=== PATIENT | male | born 1995 | race Caucasian/White ===

== ENCOUNTER 2018-04-06 16:09 | Emergency (ER) | payer SELFPAY ==
[~2018-04-06] VITALS: Ht 177.8 cm; Wt 108.1 kg
[~2018-04-06 16:09] MED LIST: DIVALPROEX SOD250 MG PO; MOTRIN800 MG PO; TOBREX5 ML RIGHT EYE
[2018-04-06] MEDS ORDERED: CIPRODEX OTIC7.5 ML LEFT EAR (16:50)
[2018-04-06] MEDS ORDERED: MOTRIN600 MG PO (16:50)
[2018-04-06 16:59] VITALS: BP 126/76
== END 2018-04-06 16:59 | disposition home or self-care (01) ==
LOC: RME 16:09 → EME 16:09 → RME 16:59
DX: H60.91 Unspecified otitis externa, right ear (principal); R51 Headache
CPT/HCPCS: 99281; 99284